=== PATIENT | male | born 2000 | race Caucasian/White ===

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

== ENCOUNTER 2019-03-12 20:51 | Emergency (ER) | payer OTHER ==
[~2019-03-12] VITALS: Ht 180.3 cm; Wt 74.4 kg
[~2019-03-12 20:51] MED LIST changes: +MEDROL DOSEPAK4 MG PO; +NAPROSYN500 MG PO; +ROBAXIN500 M1 PO
== END 2019-03-13 01:20 | disposition home or self-care (01) ==
LOC: ED 20:51
DX: G89.29 Other chronic pain (principal); M25.532 Pain in left wrist; W19.XXXA Unspecified fall, initial encounter; Y93.89 Activity, other specified; Y92.89 Other specified places as the place of occurrence of the external cause; Y99.8 Other external cause status

== ENCOUNTER 2019-04-21 14:22 | Emergency (ER) | payer OTHER ==
[~2019-04-21] VITALS: Ht 180.3 cm; Wt 79.8 kg
[2019-04-21 15:42] LABS: HEMATOCRIT 41.2 % (42.0-52.0); HEMOGLOBIN 14.6 g/dl (14.0-18.0); MEAN CELL VOLUME 83.4 fl (80.0-94.0); MEAN CORPUSCULAR HGB 29.6 pg (27.0-31.0); MEAN CORPUSCULAR HGB CONC 35.4 g/dl (33.0-37.0); MEAN PLATELET VOLUME 8.9 fl (9.6-12.3); PLATELET COUNT AUTOMATED 246 10*3/uL (130-400); RED BLOOD COUNT 4.94 10*6/uL (4.50-5.90); RED CELL DISTRI WIDTH 11.6 % (0-14.5)
[2019-04-21 15:56] LABS: ALBUMIN 3.9 gm/dl (3.1-4.5); ALKALINE PHOSPHATASE 111 U/L (45-117); BUN 11 mg/dl (7-24); CHLORIDE 103 mmol/L (98-107); CREATININE 1.07 mg/dL (0.70-1.30); POTASSIUM 3.9 mmol/L (3.5-5.1); SGOT/AST 21 IU/L (3-35); SGPT/ALT 40 U/L (12-78); SODIUM 137 mmol/L (136-145); TOTAL PROTEIN 7.5 gm/dL (6.4-8.2)
[2019-04-21 16:07] LABS: TOTAL CELLS COUNTED 100 #CELLS
[2019-04-21 16:09] LABS: PLATELET SUFFICIENCY NORMAL (NORMAL)
[2019-04-21 17:03] LABS: ATYPICAL LYMPHS 3 % (0-0)
[2019-04-21] MEDS ORDERED: VIBRAMYCIN100 MG PO (17:38)
== END 2019-04-21 18:05 | disposition home or self-care (01) ==
LOC: ED 14:22
PROVIDERS: Nurse Practitioner Family
DX: L04.2 Acute lymphadenitis of upper limb (principal); Z79.899 Other long term (current) drug therapy

== ENCOUNTER → 2019-04-27 | Outpatient (CLI) | payer OTHER ==
[~2019-04-27] MED LIST changes: +VIBRAMYCIN100 MG PO
== END | disposition home or self-care (01) ==
LOC: ORTHO 00:57
DX: M25.332 Other instability, left wrist (principal)

== ENCOUNTER 2019-08-04 05:17 | Emergency (ER) | payer OTHER ==
[~2019-08-04] VITALS: Ht 180.3 cm; Wt 81.6 kg
[2019-08-04] MEDS ORDERED: MINIPRESS1 MG PO (05:28)
[2019-08-04 06:32] LABS: BASO # 0.1 10*3/uL (0.0-0.1); BASO % 1.1 % (0.0-1.0); EOS # 0.2 10*3/uL (0.0-0.4); EOS % 2.9 % (1.0-4.0); HEMOGLOBIN 16.2 g/dl (14.0-18.0); LYMPH # 2.3 10*3/uL (1.3-4.4); LYMPH % 31.7 % (27.0-41.0); MEAN CELL VOLUME 80.6 fl (80.0-94.0); MEAN CORPUSCULAR HGB 28.4 pg (27.0-31.0); MEAN CORPUSCULAR HGB CONC 35.2 g/dl (33.0-37.0); MEAN PLATELET VOLUME 9.1 fl (9.6-12.3); MONO # 0.7 10*3/uL (0.1-1.0); MONO % 8.9 % (3.0-9.0); PLATELET COUNT AUTOMATED 281 10*3/uL (130-400); RED BLOOD COUNT 5.71 10*6/uL (4.50-5.90); RED CELL DISTRI WIDTH 11.4 % (0-14.5); WHITE BLOOD COUNT 7.3 10*3/uL (4.8-10.8)
[2019-08-04 06:47] LABS: ALBUMIN 4.1 gm/dl (3.1-4.5); ALKALINE PHOSPHATASE 147 U/L (45-117); BUN 11 mg/dl (7-24); CHLORIDE 107 mmol/L (98-107); CREATININE 0.86 mg/dL (0.70-1.30); POTASSIUM 3.7 mmol/L (3.5-5.1); SGOT/AST 13 IU/L (3-35); SGPT/ALT 36 U/L (12-78); SODIUM 140 mmol/L (136-145); TOTAL PROTEIN 7.2 gm/dL (6.4-8.2)
== END 2019-08-04 08:00 | disposition home or self-care (01) ==
LOC: ED 05:17
PROVIDERS: Emergency Medicine
DX: R06.02 Shortness of breath (principal); R51 Headache; Z79.899 Other long term (current) drug therapy

== ENCOUNTER 2019-10-21 17:06 | Emergency (ER) | payer OTHER ==
[~2019-10-21] VITALS: Ht 180.3 cm; Wt 88.0 kg
[~2019-10-21 17:06] MED LIST changes: +MINIPRESS1 MG PO
[2019-10-21 18:50] LABS: BASO # 0.1 10*3/uL (0.0-0.1); BASO % 0.7 % (0.0-1.0); EOS # 0.8 10*3/uL (0.0-0.4); EOS % 10.4 % (1.0-4.0); HEMATOCRIT 46.1 % (42.0-52.0); LYMPH # 2.9 10*3/uL (1.3-4.4); LYMPH % 37.8 % (27.0-41.0); MEAN CELL VOLUME 83.8 fl (80.0-94.0); MEAN CORPUSCULAR HGB 29.5 pg (27.0-31.0); MEAN CORPUSCULAR HGB CONC 35.1 g/dl (33.0-37.0); MEAN PLATELET VOLUME 8.9 fl (9.6-12.3); MONO # 0.6 10*3/uL (0.1-1.0); MONO % 8.2 % (3.0-9.0); NEUT # 3.3 10*3/uL (2.3-7.9); NEUT % 42.6 % (47.0-73.0); PLATELET COUNT AUTOMATED 289 10*3/uL (130-400); RED CELL DISTRI WIDTH 11.3 % (0-14.5); WHITE BLOOD COUNT 7.7 10*3/uL (4.8-10.8)
[2019-10-21 19:07] LABS: ALBUMIN 4.2 gm/dl (3.1-4.5); ALKALINE PHOSPHATASE 149 U/L (45-117); BUN 14 mg/dl (7-24); CHLORIDE 106 mmol/L (98-107); CREATININE 0.82 mg/dL (0.70-1.30); SGOT/AST 22 IU/L (3-35); SGPT/ALT 33 U/L (12-78); SODIUM 141 mmol/L (136-145); TOTAL PROTEIN 7.2 gm/dL (6.4-8.2)
[2019-10-21] MEDS ORDERED: Fioricet 325 MG1 TAB PO (19:50)
== END 2019-10-21 20:43 | disposition home or self-care (01) ==
LOC: ED 17:06
PROVIDERS: Emergency Medicine
DX: G43.009 Migraine without aura, not intractable, without status migrainosus (principal); F31.9 Bipolar disorder, unspecified; K30 Functional dyspepsia; Z79.899 Other long term (current) drug therapy; Z90.5 Acquired absence of kidney

== ENCOUNTER 2019-10-30 13:02 | Emergency (ER) | payer OTHER ==
[~2019-10-30] VITALS: Ht 175.2 cm; Wt 90.7 kg
[~2019-10-30 13:02] MED LIST changes: +Fioricet 325 MG1 TAB PO
== END 2019-10-30 14:10 | disposition home or self-care (01) ==
LOC: ED 13:02
DX: S61.212A Laceration without foreign body of right middle finger without damage to nail, initial encounter (principal); Z79.899 Other long term (current) drug therapy; W26.8XXA Contact with other sharp object(s), not elsewhere classified, initial encounter; Y93.89 Activity, other specified; Y92.89 Other specified places as the place of occurrence of the external cause; Y99.8 Other external cause status

== ENCOUNTER 2019-11-19 13:26 | Emergency (ER) | payer OTHER ==
[~2019-11-19] VITALS: Ht 177.8 cm; Wt 91.2 kg
== END 2019-11-19 19:00 ==
LOC: ED 13:26
DX: J01.90 Acute sinusitis, unspecified (principal); J02.9 Acute pharyngitis, unspecified; H92.03 Otalgia, bilateral; R42 Dizziness and giddiness; Z79.899 Other long term (current) drug therapy

== ENCOUNTER 2019-11-25 13:35 | Emergency (ER) | payer OTHER ==
[~2019-11-25] VITALS: Ht 177.8 cm; Wt 90.3 kg
[2019-11-25 14:53] LABS: BASO # 0.1 10*3/uL (0.0-0.1); BASO % 1.1 % (0.0-1.0); EOS # 0.1 10*3/uL (0.0-0.4); EOS % 1.8 % (1.0-4.0); HEMATOCRIT 42.3 % (42.0-52.0); LYMPH # 2.2 10*3/uL (1.3-4.4); LYMPH % 33.1 % (27.0-41.0); MEAN CELL VOLUME 82.8 fl (80.0-94.0); MEAN CORPUSCULAR HGB 29.7 pg (27.0-31.0); MEAN CORPUSCULAR HGB CONC 35.9 g/dl (33.0-37.0); MONO # 0.7 10*3/uL (0.1-1.0); MONO % 10.1 % (3.0-9.0); NEUT # 3.5 10*3/uL (2.3-7.9); NEUT % 53.6 % (47.0-73.0); PLATELET COUNT AUTOMATED 252 10*3/uL (130-400); RED BLOOD COUNT 5.11 10*6/uL (4.50-5.90); RED CELL DISTRI WIDTH 11.2 % (0-14.5); WHITE BLOOD COUNT 6.5 10*3/uL (4.8-10.8)
[2019-11-25 15:10] LABS: ALBUMIN 4.2 gm/dl (3.1-4.5); ALKALINE PHOSPHATASE 140 U/L (45-117); BUN 11 mg/dl (7-24); CHLORIDE 108 mmol/L (98-107); CREATININE 0.91 mg/dL (0.70-1.30); LIPASE 69 U/L (73-393); POTASSIUM 3.7 mmol/L (3.5-5.1); SGOT/AST 17 IU/L (3-35); SGPT/ALT 31 U/L (12-78); SODIUM 139 mmol/L (136-145); TOTAL PROTEIN 7.3 gm/dL (6.4-8.2)
[2019-11-25 15:46] LABS: BILIRUBIN NEGATIVE (NEGATIVE); CLARITY CLEAR (CLEAR); COLOR YELLOW (YELLOW); GLUCOSE NEGATIVE (NEGATIVE); KETONE NEGATIVE (NEGATIVE)
[2019-11-25 15:47] LABS: BLOOD NEGATIVE (NEGATIVE); LEUKO ESTERASE NEGATIVE (NEGATIVE); NITRITE NEGATIVE (NEGATIVE); UROBILINOGEN 0.2 E.U./dl (0.2-1.0)
[2019-11-25 15:53] LABS: BACTERIA TRACE; EPITHELIAL CELLS 0-2; RBC 0-2 rbc/hpf (0-2); WBC 0-2 wbc/hpf (0-5)
[2019-11-25 15:54] LABS: MUCOUS 1+
[2019-11-25] MEDS ORDERED: ZOFRAN4 MG PO (16:25)
== END 2019-11-25 16:31 | disposition home or self-care (01) ==
LOC: ED 13:35
PROVIDERS: Physician Assistant
DX: R11.2 Nausea with vomiting, unspecified (principal); Z79.899 Other long term (current) drug therapy

== ENCOUNTER 2019-12-01 09:26 | Emergency (ER) | payer OTHER ==
[~2019-12-01] VITALS: Wt 90.3 kg
[~2019-12-01 09:26] MED LIST changes: +ZOFRAN4 MG PO
[2019-12-01 09:58] LABS: BASO # 0.1 10*3/uL (0.0-0.1); BASO % 1.1 % (0.0-1.0); HEMATOCRIT 43.8 % (42.0-52.0); LYMPH # 2.3 10*3/uL (1.3-4.4); LYMPH % 32.1 % (27.0-41.0); MEAN CELL VOLUME 83.3 fl (80.0-94.0); MEAN CORPUSCULAR HGB 29.7 pg (27.0-31.0); MEAN CORPUSCULAR HGB CONC 35.6 g/dl (33.0-37.0); MEAN PLATELET VOLUME 9.2 fl (9.6-12.3); MONO # 0.8 10*3/uL (0.1-1.0); MONO % 10.5 % (3.0-9.0); PLATELET COUNT AUTOMATED 275 10*3/uL (130-400); RED BLOOD COUNT 5.26 10*6/uL (4.50-5.90); RED CELL DISTRI WIDTH 11.1 % (0-14.5); WHITE BLOOD COUNT 7.2 10*3/uL (4.8-10.8)
[2019-12-01 10:13] LABS: ALBUMIN 4.2 gm/dl (3.1-4.5); BUN 11 mg/dl (7-24); CHLORIDE 107 mmol/L (98-107); LIPASE 83 U/L (73-393); POTASSIUM 3.8 mmol/L (3.5-5.1); SGOT/AST 18 IU/L (3-35); SGPT/ALT 30 U/L (12-78); SODIUM 137 mmol/L (136-145); TOTAL PROTEIN 7.5 gm/dL (6.4-8.2)
[2019-12-01 10:17] LABS: ALKALINE PHOSPHATASE 153 U/L (45-117)
[2019-12-01 10:19] LABS: URINE COCAINE < 300 (300ng/ml); URINE METHADONE < 300 (300ng/ml); URINE OPIATES < 300 (300ng/ml)
[2019-12-01 10:22] LABS: URINE AMPHETAMINES < 1000 (1000ng/ml); URINE BARBITURATES < 200 (200ng/ml); URINE BENZODIAZEPINES < 200 (200ng/ml); URINE CANNABINOIDS (THC) < 50 (50ng/ml)
[2019-12-01 10:26] LABS: BILIRUBIN 1+ (NEGATIVE); CLARITY CLEAR (CLEAR); COLOR YELLOW (YELLOW); GLUCOSE NEGATIVE (NEGATIVE); KETONE NEGATIVE (NEGATIVE)
[2019-12-01 10:27] LABS: BLOOD TRACE-LYSED (NEGATIVE); LEUKO ESTERASE TRACE (NEGATIVE); NITRITE NEGATIVE (NEGATIVE); URINE PHENCYCLIDINE < 25 (25ng/ml); UROBILINOGEN 0.2 E.U./dl (0.2-1.0)
[2019-12-01 10:28] LABS: RBC 0-2 rbc/hpf (0-2); WBC 0-2 wbc/hpf (0-5)
[2019-12-01 10:29] LABS: BACTERIA TRACE
[2019-12-01] MEDS ORDERED: ZOFRAN4 MG PO (11:04)
== END 2019-12-01 11:20 | disposition home or self-care (01) ==
LOC: ED 09:26
PROVIDERS: Nurse Practitioner Family
DX: R11.2 Nausea with vomiting, unspecified (principal); F17.200 Nicotine dependence, unspecified, uncomplicated; Z79.899 Other long term (current) drug therapy

== ENCOUNTER 2019-12-29 11:04 | Emergency (ER) | payer OTHER ==
[~2019-12-29] VITALS: Ht 177.8 cm; Wt 89.4 kg
[2019-12-29 13:10] LABS: BASO # 0.1 10*3/uL (0.0-0.1); BASO % 0.8 % (0.0-1.0); HEMATOCRIT 43.2 % (42.0-52.0); LYMPH # 2.7 10*3/uL (1.3-4.4); LYMPH % 36.3 % (27.0-41.0); MEAN CELL VOLUME 81.7 fl (80.0-94.0); MEAN CORPUSCULAR HGB 28.9 pg (27.0-31.0); MEAN CORPUSCULAR HGB CONC 35.4 g/dl (33.0-37.0); MEAN PLATELET VOLUME 9.2 fl (9.6-12.3); MONO # 0.6 10*3/uL (0.1-1.0); MONO % 7.8 % (3.0-9.0); NEUT # 4.1 10*3/uL (2.3-7.9); NEUT % 54.8 % (47.0-73.0); PLATELET COUNT AUTOMATED 297 10*3/uL (130-400); RED BLOOD COUNT 5.29 10*6/uL (4.50-5.90); RED CELL DISTRI WIDTH 11.1 % (0-14.5); WHITE BLOOD COUNT 7.5 10*3/uL (4.8-10.8)
[2019-12-29 13:21] LABS: ACT PARTIAL THROMBO TIME 27.7 SECONDS (20.0-32.1)
[2019-12-29 13:26] LABS: ALBUMIN 4.2 gm/dl (3.1-4.5); ALKALINE PHOSPHATASE 138 U/L (45-117); BUN 15 mg/dl (7-24); CHLORIDE 105 mmol/L (98-107); CREATININE 0.96 mg/dL (0.70-1.30); LIPASE 70 U/L (73-393); POTASSIUM 3.7 mmol/L (3.5-5.1); SGOT/AST 16 IU/L (3-35); SGPT/ALT 26 U/L (12-78); SODIUM 137 mmol/L (136-145); TOTAL PROTEIN 7.3 gm/dL (6.4-8.2)
[2019-12-29 13:29] LABS: TROPONIN I < 0.015 ng/ml (<0.045)
[2019-12-29] MEDS ORDERED: ATIVAN1 MG PO (14:34)
== END 2019-12-29 14:52 | disposition home or self-care (01) ==
LOC: ED 11:04
PROVIDERS: Emergency Medicine
DX: F41.9 Anxiety disorder, unspecified (principal); F17.200 Nicotine dependence, unspecified, uncomplicated; Z79.899 Other long term (current) drug therapy

== ENCOUNTER 2020-03-05 17:28 | Emergency (ER) | payer OTHER ==
[~2020-03-05] VITALS: Ht 180.3 cm; Wt 93.9 kg
[~2020-03-05 17:28] MED LIST changes: +ATIVAN1 MG PO
[2020-03-05 18:28] LABS: BASO # 0.1 10*3/uL (0.0-0.1); BASO % 0.5 % (0.0-1.0); HEMATOCRIT 44.1 % (42.0-52.0); LYMPH # 1.9 10*3/uL (1.3-4.4); LYMPH % 16.1 % (27.0-41.0); MEAN CELL VOLUME 80.9 fl (80.0-94.0); MEAN CORPUSCULAR HGB 28.3 pg (27.0-31.0); MEAN CORPUSCULAR HGB CONC 34.9 g/dl (33.0-37.0); MONO % 8.3 % (3.0-9.0); NEUT % 74.9 % (47.0-73.0); PLATELET COUNT AUTOMATED 291 10*3/uL (130-400); RED BLOOD COUNT 5.45 10*6/uL (4.50-5.90); RED CELL DISTRI WIDTH 11.1 % (0-14.5)
[2020-03-05 18:43] LABS: ALBUMIN 4.4 gm/dl (3.1-4.5); ALKALINE PHOSPHATASE 146 U/L (45-117); BUN 12 mg/dl (7-24); CHLORIDE 106 mmol/L (98-107); CREATININE 0.99 mg/dL (0.70-1.30); POTASSIUM 3.6 mmol/L (3.5-5.1); SGOT/AST 16 IU/L (3-35); SGPT/ALT 28 U/L (12-78); SODIUM 139 mmol/L (136-145); TOTAL PROTEIN 7.6 gm/dL (6.4-8.2)
[2020-03-05] MEDS ORDERED: TESSALON PERLE100 M1 PO (20:00)
[2020-03-05] MEDS ORDERED: FLONASE ALLERG9.9 ML NAS (20:00)
[2020-03-05] MEDS ORDERED: ZITHROMAX250 MG PO (20:00)
== END 2020-03-05 20:12 | disposition home or self-care (01) ==
LOC: ED 17:28
PROVIDERS: Physician Assistant
DX: J32.9 Chronic sinusitis, unspecified (principal); J40 Bronchitis, not specified as acute or chronic; Z79.899 Other long term (current) drug therapy

== ENCOUNTER 2021-01-24 11:32 | Emergency (ER) | payer OTHER ==
[~2021-01-24] VITALS: Wt 96.6 kg
[~2021-01-24 11:32] MED LIST changes: +FLONASE ALLERG9.9 ML NAS; +TESSALON PERLE100 M1 PO; +ZITHROMAX250 MG PO
== END 2021-01-24 15:39 | disposition home or self-care (01) ==
LOC: ED 11:32
DX: F41.9 Anxiety disorder, unspecified (principal); Z79.899 Other long term (current) drug therapy

== ENCOUNTER 2021-02-13 16:24 | Emergency (ER) | payer OTHER ==
[~2021-02-13] VITALS: Ht 180.3 cm; Wt 96.6 kg
[2021-02-13 17:45] LABS: BASO # 0.1 10*3/uL (0.0-0.1); BASO % 0.7 % (0.0-1.0); HEMATOCRIT 41.8 % (42.0-52.0); LYMPH # 3.3 10*3/uL (1.3-4.4); LYMPH % 30.1 % (27.0-41.0); MEAN CELL VOLUME 81.5 fl (80.0-94.0); MEAN CORPUSCULAR HGB CONC 35.6 g/dl (33.0-37.0); MEAN PLATELET VOLUME 8.9 fl (9.6-12.3); MONO # 0.9 10*3/uL (0.1-1.0); MONO % 8.5 % (3.0-9.0); NEUT # 6.7 10*3/uL (2.3-7.9); NEUT % 60.2 % (47.0-73.0); PLATELET COUNT AUTOMATED 347 10*3/uL (130-400); RED BLOOD COUNT 5.13 10*6/uL (4.50-5.90); RED CELL DISTRI WIDTH 11.6 % (0-14.5)
[2021-02-13 18:01] LABS: ALBUMIN 4.2 gm/dl (3.1-4.5); ALKALINE PHOSPHATASE 151 U/L (45-117); BUN 15 mg/dl (7-24); CHLORIDE 108 mmol/L (98-107); CREATININE 1.06 mg/dL (0.70-1.30); LIPASE 83 U/L (73-393); POTASSIUM 3.8 mmol/L (3.5-5.1); SGOT/AST 16 IU/L (3-35); SGPT/ALT 34 U/L (12-78); SODIUM 139 mmol/L (136-145); TOTAL PROTEIN 7.2 gm/dL (6.4-8.2)
[2021-02-13 19:32] LABS: BILIRUBIN Negative (Negative); BLOOD Negative (Negative); CLARITY Clear (Clear); COLOR Yellow (Yellow); GLUCOSE Negative (Negative); KETONE Trace (Negative); LEUKO ESTERASE Negative (Negative); NITRITE Negative (Negative); PH 5.5 (4.5-8.0); SPECIFIC GRAVITY 1.025 (1.001-1.030); UROBILINOGEN 0.2 E.U./dl (0.0-1.0)
[2021-02-13 19:43] LABS: RBC 0-2 rbc/hpf (0-2); WBC 0-2 wbc/hpf (0-5)
== END 2021-02-13 21:53 | disposition left against medical advice (07) ==
LOC: ED 16:24
PROVIDERS: Nurse Practitioner Family
DX: K56.600 Partial intestinal obstruction, unspecified as to cause (principal); Z79.899 Other long term (current) drug therapy; Z79.2 Long term (current) use of antibiotics

== ENCOUNTER 2021-02-15 10:58 | Emergency (ER) | payer OTHER ==
[~2021-02-15] VITALS: Ht 180.3 cm
[2021-02-15 12:14] LABS: BASO # 0.1 10*3/uL (0.0-0.1); HEMATOCRIT 44.1 % (42.0-52.0); LYMPH # 2.3 10*3/uL (1.3-4.4); LYMPH % 25.7 % (27.0-41.0); MEAN CELL VOLUME 83.5 fl (80.0-94.0); MEAN CORPUSCULAR HGB 28.8 pg (27.0-31.0); MEAN CORPUSCULAR HGB CONC 34.5 g/dl (33.0-37.0); MONO # 0.7 10*3/uL (0.1-1.0); MONO % 8.1 % (3.0-9.0); NEUT # 5.9 10*3/uL (2.3-7.9); NEUT % 64.8 % (47.0-73.0); PLATELET COUNT AUTOMATED 313 10*3/uL (130-400); RED BLOOD COUNT 5.28 10*6/uL (4.50-5.90); RED CELL DISTRI WIDTH 11.6 % (0-14.5); WHITE BLOOD COUNT 9.1 10*3/uL (4.8-10.8)
[2021-02-15 12:32] LABS: ALBUMIN 4.3 gm/dl (3.1-4.5); ALKALINE PHOSPHATASE 158 U/L (45-117); BUN 12 mg/dl (7-24); CHLORIDE 107 mmol/L (98-107); CREATININE 0.98 mg/dL (0.70-1.30); LIPASE 66 U/L (73-393); POTASSIUM 4.1 mmol/L (3.5-5.1); SGOT/AST 23 IU/L (3-35); SGPT/ALT 57 U/L (12-78); SODIUM 139 mmol/L (136-145); TOTAL PROTEIN 7.7 gm/dL (6.4-8.2)
[2021-02-15 14:35] LABS: BILIRUBIN Negative (Negative); BLOOD Negative (Negative); CLARITY Clear (Clear); COLOR Yellow (Yellow); GLUCOSE Negative (Negative); KETONE Negative (Negative); LEUKO ESTERASE Negative (Negative); NITRITE Negative (Negative); PH 5.5 (4.5-8.0); UROBILINOGEN 0.2 E.U./dl (0.0-1.0)
[2021-02-15 14:45] LABS: BACTERIA TRACE; EPITHELIAL CELLS 0-2; RBC 0-2 rbc/hpf (0-2); WBC 0-2 wbc/hpf (0-5)
== END 2021-02-15 16:46 | disposition home or self-care (01) ==
LOC: ED 10:58
PROVIDERS: Physician Assistant
DX: R10.30 Lower abdominal pain, unspecified (principal); R14.3 Flatulence; F17.200 Nicotine dependence, unspecified, uncomplicated; Z79.899 Other long term (current) drug therapy

== ENCOUNTER 2021-05-08 11:02 | Emergency (ER) | payer OTHER ==
[~2021-05-08] VITALS: Ht 182.8 cm; Wt 97.5 kg
[2021-05-08] MEDS ORDERED: CEPHALEXIN500 M1 PO (11:27)
== END 2021-05-08 11:41 | disposition home or self-care (01) ==
LOC: ED 11:02
DX: L29.0 Pruritus ani (principal); Z79.899 Other long term (current) drug therapy

== ENCOUNTER 2021-05-12 04:24 | Inpatient (IN) | payer OTHER ==
[~2021-05-12] VITALS: Ht 182.8 cm; Wt 97.5 kg
[~2021-05-12 04:24] MED LIST changes: +CEPHALEXIN500 M1 PO
[2021-05-12 04:37] VITALS: BP 129/67
[2021-05-12] MEDS ORDERED: PALIPERIDONE ER6 MG PO (04:39)
[2021-05-12 05:26] LABS: BUN 14 mg/dl (7-24); CHLORIDE 108 mmol/L (98-107); CREATININE 0.96 mg/dL (0.70-1.30); SODIUM 138 mmol/L (136-145)
[2021-05-12 05:51] LABS: BASO # 0.1 10*3/uL (0.0-0.1); BASO % 0.6 % (0.0-1.0); HEMATOCRIT 44.4 % (42.0-52.0); LYMPH # 2.1 10*3/uL (1.3-4.4); LYMPH % 19.1 % (27.0-41.0); MEAN CELL VOLUME 83.5 fl (80.0-94.0); MEAN CORPUSCULAR HGB 28.6 pg (27.0-31.0); MEAN CORPUSCULAR HGB CONC 34.2 g/dl (33.0-37.0); MEAN PLATELET VOLUME 9.1 fl (9.6-12.3); MONO # 0.9 10*3/uL (0.1-1.0); MONO % 7.9 % (3.0-9.0); NEUT # 7.7 10*3/uL (2.3-7.9); NEUT % 71.4 % (47.0-73.0); PLATELET COUNT AUTOMATED 356 10*3/uL (130-400); RED BLOOD COUNT 5.32 10*6/uL (4.50-5.90); WHITE BLOOD COUNT 10.8 10*3/uL (4.8-10.8)
[2021-05-12 08:10] VITALS: BP 114/66
[2021-05-12 12:15] VITALS: BP 106/56
[2021-05-12 20:01] VITALS: BP 107/59
[2021-05-13 01:53] VITALS: BP 123/81
[2021-05-13 06:51] VITALS: BP 138/72
[2021-05-13 09:31] LABS: BASO % 0.3 % (0.0-1.0); HEMATOCRIT 42.8 % (42.0-52.0); LYMPH # 3.1 10*3/uL (1.3-4.4); LYMPH % 24.6 % (27.0-41.0); MEAN CELL VOLUME 82.5 fl (80.0-94.0); MEAN CORPUSCULAR HGB 28.5 pg (27.0-31.0); MEAN CORPUSCULAR HGB CONC 34.6 g/dl (33.0-37.0); MEAN PLATELET VOLUME 8.7 fl (9.6-12.3); MONO # 0.6 10*3/uL (0.1-1.0); MONO % 5.1 % (3.0-9.0); NEUT # 8.7 10*3/uL (2.3-7.9); NEUT % 69.7 % (47.0-73.0); PLATELET COUNT AUTOMATED 370 10*3/uL (130-400); RED BLOOD COUNT 5.19 10*6/uL (4.50-5.90); RED CELL DISTRI WIDTH 10.8 % (0-14.5); WHITE BLOOD COUNT 12.5 10*3/uL (4.8-10.8)
[2021-05-13 09:42] LABS: BUN 14 mg/dl (7-24); CHLORIDE 107 mmol/L (98-107); CREATININE 1.09 mg/dL (0.70-1.30); POTASSIUM 4.3 mmol/L (3.5-5.1); SODIUM 140 mmol/L (136-145)
[2021-05-13 15:45] VITALS: BP 100/55; BP 141/84
[2021-05-13] MEDS ORDERED: VIBRAMYCIN100 MG PO (18:19)
== END 2021-05-13 18:49 | disposition home or self-care (01) | DRG 603 ==
LOC: ED 04:24 → EDHOLD 06:04
PROVIDERS: Hospitalist; Internal Medicine; ADMIT Student in an Organized Health Care Education/Training Program; ATTEND Student in an Organized Health Care Education/Training Program
DX: L02.31 Cutaneous abscess of buttock (principal); L03.317 Cellulitis of buttock; F17.210 Nicotine dependence, cigarettes, uncomplicated; E66.3 Overweight; R73.9 Hyperglycemia, unspecified; R00.0 Tachycardia, unspecified; G89.29 Other chronic pain; M25.532 Pain in left wrist; G43.909 Migraine, unspecified, not intractable, without status migrainosus; Z79.899 Other long term (current) drug therapy; Z82.3 Family history of stroke; Z68.25 Body mass index [BMI] 25.0-25.9, adult

== ENCOUNTER 2021-09-29 07:51 | Emergency (ER) | payer OTHER ==
[~2021-09-29 07:51] MED LIST changes: +PALIPERIDONE ER6 MG PO
[2021-09-29] MEDS ORDERED: IBU800 M2 PO (08:15)
[2021-09-29] MEDS ORDERED: CYCLOBENZAPRINE10 MG PO (08:15)
== END 2021-09-29 09:09 | disposition home or self-care (01) ==
LOC: ED 07:51
DX: M54.50 Low back pain, unspecified (principal); F17.210 Nicotine dependence, cigarettes, uncomplicated; Z98.890 Other specified postprocedural states; Z79.899 Other long term (current) drug therapy; X50.0XXA Overexertion from strenuous movement or load, initial encounter; Y93.89 Activity, other specified; Y92.69 Other specified industrial and construction area as the place of occurrence of the external cause; Y99.9 Unspecified external cause status

== ENCOUNTER → 2021-10-02 | Outpatient (CLI) | payer OTHER ==
[~2021-10-02] MED LIST changes: +CYCLOBENZAPRINE10 MG PO; +IBU800 M2 PO
== END | disposition home or self-care (01) ==
LOC: LAB 14:30
PROVIDERS: ATTEND Family Medicine
DX: R79.89 Other specified abnormal findings of blood chemistry (principal); R53.83 Other fatigue

== ENCOUNTER 2022-03-29 22:15 | Emergency (ER) | payer OTHER ==
[~2022-03-29] VITALS: Ht 180.3 cm; Wt 99.8 kg
[2022-03-30 00:04] LABS: BASO # 0.1 10*3/uL (0.0-0.1); BASO % 0.7 % (0.0-1.0); EOS % 0.1 % (1.0-4.0); HEMATOCRIT 42.3 % (42.0-52.0); LYMPH # 2.9 10*3/uL (1.3-4.4); LYMPH % 24.1 % (27.0-41.0); MEAN CELL VOLUME 82.5 fl (80.0-94.0); MEAN CORPUSCULAR HGB 29.2 pg (27.0-31.0); MEAN CORPUSCULAR HGB CONC 35.5 g/dl (33.0-37.0); MONO % 8.1 % (3.0-9.0); NEUT # 7.9 10*3/uL (2.3-7.9); NEUT % 66.7 % (47.0-73.0); PLATELET COUNT AUTOMATED 276 10*3/uL (130-400); RED BLOOD COUNT 5.13 10*6/uL (4.50-5.90); RED CELL DISTRI WIDTH 11.3 % (0-14.5); WHITE BLOOD COUNT 11.8 10*3/uL (4.8-10.8)
[2022-03-30 00:22] LABS: BUN 18 mg/dl (7-24); CHLORIDE 108 mmol/L (98-107); CREATININE 0.94 mg/dL (0.70-1.30); POTASSIUM 3.9 mmol/L (3.5-5.1); SGOT/AST 20 IU/L (3-35); SGPT/ALT 36 U/L (12-78); SODIUM 139 mmol/L (136-145); TOTAL PROTEIN 7.5 gm/dL (6.4-8.2)
[2022-03-30 00:23] LABS: ALKALINE PHOSPHATASE 135 U/L (45-117)
[2022-03-30] MEDS ORDERED: SEPTDS PO (08:00)
== END 2022-03-30 08:15 | disposition home or self-care (01) ==
LOC: ED 22:15
PROVIDERS: Emergency Medicine
DX: K61.1 Rectal abscess (principal); G43.909 Migraine, unspecified, not intractable, without status migrainosus; F41.9 Anxiety disorder, unspecified; F17.210 Nicotine dependence, cigarettes, uncomplicated; Z79.899 Other long term (current) drug therapy; Z98.890 Other specified postprocedural states

== ENCOUNTER 2022-05-29 15:49 | Emergency (ER) | payer OTHER, BC ==
[~2022-05-29] VITALS: Ht 180.3 cm; Wt 99.8 kg
[~2022-05-29 15:49] MED LIST changes: +SEPTDS PO
[2022-05-29 17:12] LABS: BILIRUBIN Negative (Negative); BLOOD Negative (Negative); CLARITY Clear (Clear); COLOR Yellow (Yellow); GLUCOSE Negative (Negative); KETONE Trace (Negative); LEUKO ESTERASE Negative (Negative); NITRITE Negative (Negative); SPECIFIC GRAVITY >= 1.030 (1.001-1.030)
[2022-05-29 18:08] LABS: BASO # 0.1 10*3/uL (0.0-0.1); BASO % 0.6 % (0.0-1.0); LYMPH # 2.9 10*3/uL (1.3-4.4); LYMPH % 26.1 % (27.0-41.0); MEAN CORPUSCULAR HGB 29.2 pg (27.0-31.0); MEAN PLATELET VOLUME 9.1 fl (9.6-12.3); MONO # 0.7 10*3/uL (0.1-1.0); MONO % 6.6 % (3.0-9.0); NEUT # 7.4 10*3/uL (2.3-7.9); NEUT % 66.5 % (47.0-73.0); PLATELET COUNT AUTOMATED 317 10*3/uL (130-400); RED BLOOD COUNT 5.31 10*6/uL (4.50-5.90); RED CELL DISTRI WIDTH 11.4 % (0-14.5); WHITE BLOOD COUNT 11.1 10*3/uL (4.8-10.8)
[2022-05-29 18:28] LABS: ALKALINE PHOSPHATASE 125 U/L (46-116); BUN 10 mg/dl (9-23); CHLORIDE 107 mmol/L (98-107); CREATININE 0.85 mg/dL (0.70-1.30); LIPASE 34 U/L (12-53); POTASSIUM 3.8 mmol/L (3.4-5.1); SGPT/ALT 26 U/L (10-49); SODIUM 138 mmol/L (136-145); TOTAL PROTEIN 6.7 gm/dL (6.0-8.0)
[2022-05-29 18:33] LABS: RBC 0-2 rbc/hpf (0-2); WBC 0-2 wbc/hpf (0-5)
== END 2022-05-29 21:58 | disposition home or self-care (01) ==
LOC: ED 15:49
PROVIDERS: Physician Assistant
DX: R10.12 Left upper quadrant pain (principal); R11.10 Vomiting, unspecified; Z79.899 Other long term (current) drug therapy; F17.210 Nicotine dependence, cigarettes, uncomplicated

== ENCOUNTER 2023-07-09 23:53 | Emergency (ER) | payer BC, OTHER ==
[~2023-07-09] VITALS: Ht 180.3 cm; Wt 98.9 kg
[2023-07-10] MEDS ORDERED: IBU600 M1 PO (03:31)
[2023-07-10] MEDS ORDERED: MEDROL DOSEPAK4 MG PO (03:31)
[2023-07-10] MEDS ORDERED: CYCLOBENZAPRINE10 MG PO (03:31)
== END 2023-07-10 03:56 | disposition home or self-care (01) ==
LOC: ED 23:53
DX: K45.8 Other specified abdominal hernia without obstruction or gangrene (principal); M54.50 Low back pain, unspecified; F41.9 Anxiety disorder, unspecified; R73.9 Hyperglycemia, unspecified; G43.909 Migraine, unspecified, not intractable, without status migrainosus; F90.9 Attention-deficit hyperactivity disorder, unspecified type; F17.210 Nicotine dependence, cigarettes, uncomplicated; Z98.890 Other specified postprocedural states

== ENCOUNTER 2023-10-14 20:03 | Emergency (ER) | payer BC, OTHER ==
[~2023-10-14] VITALS: Ht 177.8 cm; Wt 95.3 kg
[~2023-10-14 20:03] MED LIST changes: +IBU600 M1 PO
[2023-10-14] MEDS ORDERED: Albuterol Sulf/Ipratropium 3 ML VIAL NEB ONE (20:15)
[2023-10-14 20:26] LABS: BASO # 0.1 10*3/uL (0.0-0.1); BASO % 0.6 % (0.0-1.0); HEMATOCRIT 46.3 % (42.0-52.0); LYMPH # 2.6 10*3/uL (1.3-4.4); LYMPH % 26.1 % (27.0-41.0); MEAN CELL VOLUME 83.3 fl (80.0-94.0); MEAN CORPUSCULAR HGB 28.8 pg (27.0-31.0); MEAN CORPUSCULAR HGB CONC 34.6 g/dl (33.0-37.0); MONO # 0.6 10*3/uL (0.1-1.0); MONO % 6.2 % (3.0-9.0); NEUT # 6.7 10*3/uL (2.3-7.9); NEUT % 66.9 % (47.0-73.0); PLATELET COUNT AUTOMATED 303 10*3/uL (130-400); RED BLOOD COUNT 5.56 10*6/uL (4.50-5.90); RED CELL DISTRI WIDTH 11.2 % (0-14.5)
[2023-10-14 20:48] LABS: ALKALINE PHOSPHATASE 124 U/L (46-116); BUN 15 mg/dl (9-23); CHLORIDE 106 mmol/L (98-107); POTASSIUM 3.9 mmol/L (3.4-5.1); SGPT/ALT 20 U/L (5-49); TOTAL PROTEIN 7.4 gm/dL (6.0-8.0)
[2023-10-14] MEDS ORDERED: PREDNISONE50 MG PO (21:08)
[2023-10-14] MEDS ORDERED: methylPREDNISolone sod succ 125 MG VIAL IM ONE (21:10)
== END 2023-10-14 21:33 | disposition home or self-care (01) ==
LOC: ED 20:03
PROVIDERS: Nurse Practitioner Family
DX: J45.909 Unspecified asthma, uncomplicated (principal); F90.9 Attention-deficit hyperactivity disorder, unspecified type; F41.9 Anxiety disorder, unspecified; F31.9 Bipolar disorder, unspecified; Z98.890 Other specified postprocedural states; F17.210 Nicotine dependence, cigarettes, uncomplicated

== ENCOUNTER 2023-10-28 18:55 | Emergency (ER) | payer BC, OTHER ==
[~2023-10-28] VITALS: Ht 154.9 cm; Wt 95.7 kg
[~2023-10-28 18:55] MED LIST changes: +PREDNISONE50 MG PO
[2023-10-28] MEDS ORDERED: OMEPRAZOLE40 MG PO (19:07)
[2023-10-28] MEDS ORDERED: methylPREDNISolone sod succ 125 MG VIAL IM ONE (19:25)
[2023-10-28] MEDS ORDERED: Albuterol Sulf/Ipratropium 3 ML VIAL NEB ONE (19:25)
[2023-10-28 19:41] LABS: BASO # 0.1 10*3/uL (0.0-0.1); BASO % 0.5 % (0.0-1.0); HEMATOCRIT 46.5 % (42.0-52.0); LYMPH # 2.2 10*3/uL (1.3-4.4); MEAN CELL VOLUME 84.7 fl (80.0-94.0); MEAN CORPUSCULAR HGB 29.3 pg (27.0-31.0); MEAN CORPUSCULAR HGB CONC 34.6 g/dl (33.0-37.0); MONO # 0.4 10*3/uL (0.1-1.0); MONO % 3.3 % (3.0-9.0); NEUT % 76.9 % (47.0-73.0); PLATELET COUNT AUTOMATED 276 10*3/uL (130-400); RED BLOOD COUNT 5.49 10*6/uL (4.50-5.90); RED CELL DISTRI WIDTH 11.2 % (0-14.5); WHITE BLOOD COUNT 11.7 10*3/uL (4.8-10.8)
[2023-10-28 20:01] LABS: BUN 14 mg/dl (9-23); CHLORIDE 105 mmol/L (98-107); POTASSIUM 3.6 mmol/L (3.4-5.1)
== END 2023-10-28 21:03 | disposition home or self-care (01) ==
LOC: ED 18:55
PROVIDERS: Physician Assistant Medical
DX: R06.00 Dyspnea, unspecified (principal); F90.9 Attention-deficit hyperactivity disorder, unspecified type; F31.9 Bipolar disorder, unspecified; F41.9 Anxiety disorder, unspecified; Z98.890 Other specified postprocedural states; F17.210 Nicotine dependence, cigarettes, uncomplicated

== ENCOUNTER 2024-04-20 17:05 | Emergency (ER) | payer BC ==
[~2024-04-20] VITALS: Ht 182.8 cm; Wt 97.5 kg
[~2024-04-20 17:05] MED LIST changes: +OMEPRAZOLE40 MG PO
[2024-04-20] MEDS ORDERED: methylPREDNISolone sod succ 125 MG VIAL IM ONE (17:30)
[2024-04-20] MEDS ORDERED: Ketorolac Tromethamine 30 MG/ML VIAL IM ONE (17:30)
[2024-04-20] MEDS ORDERED: METHOCARBAMOL500 M1 PO (18:39)
== END 2024-04-20 18:52 | disposition home or self-care (01) ==
LOC: ED 17:05
DX: M62.830 Muscle spasm of back (principal); F90.9 Attention-deficit hyperactivity disorder, unspecified type; F41.9 Anxiety disorder, unspecified; F17.210 Nicotine dependence, cigarettes, uncomplicated; Z98.890 Other specified postprocedural states

== ENCOUNTER 2024-04-27 20:37 | Emergency (ER) | payer BC ==
[~2024-04-27] VITALS: Ht 180.3 cm; Wt 97.6 kg
[~2024-04-27 20:37] MED LIST changes: +METHOCARBAMOL500 M1 PO
[2024-04-27 22:27] LABS: BASO # 0.1 10*3/uL (0.0-0.1); BASO % 0.4 % (0.0-1.0); HEMATOCRIT 44.1 % (42.0-52.0); MEAN CELL VOLUME 83.7 fl (80.0-94.0); MEAN CORPUSCULAR HGB 28.8 pg (27.0-31.0); MEAN CORPUSCULAR HGB CONC 34.5 g/dl (33.0-37.0); MONO % 6.9 % (3.0-9.0); NEUT # 10.8 10*3/uL (2.3-7.9); NEUT % 71.7 % (47.0-73.0); PLATELET COUNT AUTOMATED 292 10*3/uL (130-400); RED BLOOD COUNT 5.27 10*6/uL (4.50-5.90); RED CELL DISTRI WIDTH 11.1 % (0-14.5)
[2024-04-27 22:43] LABS: ALKALINE PHOSPHATASE 122 U/L (46-116); BUN 13 mg/dl (9-23); CHLORIDE 107 mmol/L (98-107); LIPASE 28 U/L (12-53); POTASSIUM 3.8 mmol/L (3.4-5.1); SGPT/ALT 17 U/L (5-49)
[2024-04-27] MEDS ORDERED: Ketorolac Tromethamine 60 MG/2 ML VIAL IM ONE (23:45)
== END 2024-04-28 00:03 | disposition home or self-care (01) ==
LOC: ED 20:37
PROVIDERS: Internal Medicine
DX: B34.9 Viral infection, unspecified (principal); D72.829 Elevated white blood cell count, unspecified; F90.9 Attention-deficit hyperactivity disorder, unspecified type; F41.9 Anxiety disorder, unspecified; F17.210 Nicotine dependence, cigarettes, uncomplicated; Z98.890 Other specified postprocedural states

== ENCOUNTER 2024-12-11 12:25 | Emergency (ER) | payer MEDICAID ==
[~2024-12-11] VITALS: Ht 182.8 cm; Wt 97.5 kg
[2024-12-11] MEDS ORDERED: SODIUM CHLORIDE 0.9% 1,000 ML IV ONE (13:55)
[2024-12-11] MEDS ORDERED: Ondansetron Hydrochloride 4 MG/2 ML VIAL IV ONE (13:55)
[2024-12-11 14:10] LABS: BASO # 0.1 10*3/uL (0.0-0.1); BASO % 0.9 % (0.0-1.0); EOS # 0.1 10*3/uL (0.0-0.4); EOS % 1.4 % (1.0-4.0); HEMATOCRIT 45.9 % (42.0-52.0); MEAN CELL VOLUME 82.4 fl (80.0-94.0); MEAN CORPUSCULAR HGB 29.1 pg (27.0-31.0); MEAN CORPUSCULAR HGB CONC 35.3 g/dl (33.0-37.0); MEAN PLATELET VOLUME 8.9 fl (9.6-12.3); MONO # 0.6 10*3/uL (0.1-1.0); MONO % 9.1 % (3.0-9.0); NEUT # 3.8 10*3/uL (2.3-7.9); PLATELET COUNT AUTOMATED 284 10*3/uL (130-400); RED BLOOD COUNT 5.57 10*6/uL (4.50-5.90); WHITE BLOOD COUNT 6.9 10*3/uL (4.8-10.8)
[2024-12-11 14:27] LABS: BUN 14 mg/dl (9-23); CHLORIDE 107 mmol/L (98-107); CPK 85 U/L (34-171); POTASSIUM 4.1 mmol/L (3.4-5.1)
== END 2024-12-11 16:07 | disposition home or self-care (01) ==
LOC: ED 12:25
PROVIDERS: Nurse Practitioner Family
DX: T67.5XXA Heat exhaustion, unspecified, initial encounter (principal); F41.9 Anxiety disorder, unspecified; F17.200 Nicotine dependence, unspecified, uncomplicated; Z20.822 Contact with and (suspected) exposure to COVID-19; X58.XXXA Exposure to other specified factors, initial encounter; Y93.89 Activity, other specified; Y92.89 Other specified places as the place of occurrence of the external cause; Y99.8 Other external cause status